=== PATIENT | male | born 1940 | race Hispanic/Latino ===

== ENCOUNTER 2017-12-29 05:47 | Inpatient (IN) | payer MEDICARE ==
[2017-12-29 05:57] VITALS: BMI 27.8
--- NOTE | 2017-12-29 06:21 | ED PDOC ---
Arrival/HPI - General Chief Complaint: GI Problem Time Seen by Provider: 12/29/17 06:01 Historian: Patient - History of Present Illness Narrative History of Present Illness (Text): 12/29/17 06:18 Swapnil Kumar is a 77 year old male, whose past medical history includes chronic hypertension, who presents to the Emergency department brought in by EMS accompanied by family complaining of hematemesis. As per patient's family, this morning patient appeared pale and diaphoretic, leaned over, and began spitting up blood. notes patient had dark stools yesterday and was seen by his gear machine operator general yesterday, who ordered labs and scheduled patient for an outpatient endoscopy later this week to rule out a bleeding ulcer. Patient reports some associated epigastric abdominal discomfort for the past few days. notes patient regularly takes Aspirin. Patient denies any loss of consciousness, headache, dizziness, chest pain, shortness of breath, diarrhea, or any other complaints. GI: Dr. Bautista Symptom Onset: Gradual Symptom Course: Unchanged Activities at Onset: Light Context: Home Past Medical History - Provider Review Nursing Documentation Reviewed: Yes - Cardiac Hx Cardiac Disorders: Yes Hx Hypertension: Yes - Pulmonary Hx Respiratory Disorders: No - Neurological Hx Neurological Disorder: No - Renal Hx Renal Disorder: No - Endocrine/Metabolic Hx Endocrine Disorders: No - Hematological/Oncological Hx Blood Disorders: No - Psychiatric Hx Substance Use: No - Anesthesia Hx Anesthesia: No Family/Social History - Physician Review Nursing Documentation Reviewed: Yes Family/Social History: Unknown Family HX Smoking Status: Never Smoked Hx Alcohol Use: No Hx Substance Use: No Allergies/Home Meds Allergies/Adverse Reactions: Allergies No Known Allergies Allergy (Unverified 12/29/17 06:28) Review of Systems - Physician Review All systems were reviewed & negative as marked: Yes - Review of Systems Constitutional: Normal. absent: Fevers Eyes: Normal ENT: Normal Respiratory: Normal. absent: SOB, Cough Cardiovascular: Normal. absent: Chest Pain Gastrointestinal: Abdominal Pain, Hematemesis (+spitting up blood), Other (+dark stools) Genitourinary Male: Normal. absent: Dysuria, Frequency, Hematuria, Urinary Output Changes Musculoskeletal: Normal. absent: Back Pain, Neck Pain Skin: Normal. absent: Rash Neurological: Normal. absent: Headache, Dizziness Endocrine: Normal Hemo/Lymphatic: Normal Psychiatric: Normal Physical Exam Vital Signs Reviewed: Yes Vital Signs Temp Pulse Resp BP Pulse Ox 12/29/17 06:00 97.7 F 60 18 133/51 L 98 Temperature: Afebrile Blood Pressure: Normal Pulse: Regular Respiratory Rate: Normal Appearance: Positive for: Well-Appearing, Non-Toxic, Comfortable Pain Distress: None Mental Status: Positive for: Alert and Oriented X 3 - Systems Exam Head: Present: Atraumatic, Normocephalic Pupils: Present: PERRL Extroacular Muscles: Present: EOMI Conjunctiva: Present: Normal Mouth: Present: Moist Mucous Membranes Neck: Present: Normal Range of Motion Respiratory/Chest: Present: Clear to Auscultation, Good Air Exchange. No: Respiratory Distress, Accessory Muscle Use Cardiovascular: Present: Regular Rate and Rhythm, Normal S1, S2. No: Murmurs Abdomen: Present: Tenderness (Mid epigastric tenderness). No: Distention, Peritoneal Signs, Guarding Back: Present: Normal Inspection Upper Extremity: Present: Normal Inspection. No: Cyanosis, Edema Lower Extremity: Present: Normal Inspection. No: Edema Neurological: Present: GCS=15, CN II-XII Intact, Speech Normal Skin: Present: Warm, Dry, Normal Color. No: Rashes Psychiatric: Present: Alert, Oriented x 3, Normal Insight, Normal Concentration Medical Decision Making ED Course and Treatment: 12/29/17 06:18 Impression: 77 year old male presented for dark stools, hematemesis, and abdominal discomfort. Plan: -- CT Abdomen and Pelvis with IV contrast -- EKG -- Chest X-ray -- Labs, blood type and screen, lipase -- IV fluids -- Pepcid -- Protonix -- Zofran -- Reassess and disposition Progress Notes: 12/29/17 07:[address] Chakraborty, pending labs, CT Abdomen and Pelvis, re- evaluation, and disposition. - EKG Interpretation Interpreted by ED Physician: Yes Type: 12 lead EKG - Scribe Statement The provider has reviewed the documentation as recorded by the Aaron Westfall Provider Scribe Attestation: All medical record entries made by the Scribe were at my direction and personally dictated by me. I have reviewed the chart and agree that the record accurately reflects my personal performance of the history, physical exam, medical decision making, and the department course for this patient. I have also personally directed, reviewed, and agree with the discharge instructions and disposition. Disposition/Present on Arrival - Present on Arrival Any Indicators Present on Arrival: No History of DVT/PE: No History of Uncontrolled Diabetes: No Urinary Catheter: No History of Decub. Ulcer: No History Surgical Site Infection Following: None - Disposition Have Diagnosis and Disposition been Completed?: No Diagnosis: Abdominal pain, Hematemesis Disposition Time: 07:00 Patient Problems: Current Active Problems Problem Status Onset Abdominal pain Acute Hematemesis Acute Condition: STABLE Referrals: Storm Garcia MD [Primary Care Provider] - Follow up with primary Forms: Evri (Indonesian)
[2017-12-29] MEDS ORDERED: Sodium Chloride 0.9% 1,000 ML IV STA (06:30)
--- NOTE | 2017-12-29 07:34 | ED PDOC ---
Physical Exam Vital Signs Reviewed: Yes Vital Signs Temp Pulse Resp BP Pulse Ox 12/29/17 06:00 97.7 F 60 18 133/51 L 98 Temperature: Afebrile Blood Pressure: Hypertensive Pulse: Regular Respiratory Rate: Normal Appearance: Positive for: Well-Appearing, Non-Toxic, Comfortable Pain Distress: None Mental Status: Positive for: Alert and Oriented X 3 - Systems Exam Head: Present: Atraumatic, Normocephalic Pupils: Present: PERRL Extroacular Muscles: Present: EOMI Conjunctiva: Present: Normal Mouth: Present: Moist Mucous Membranes Neck: Present: Normal Range of Motion Respiratory/Chest: Present: Clear to Auscultation, Good Air Exchange. No: Respiratory Distress, Accessory Muscle Use Cardiovascular: Present: Regular Rate and Rhythm, Normal S1, S2. No: Murmurs Abdomen: Present: Other (abdomen is soft). No: Tenderness, Distention Back: Present: Normal Inspection Upper Extremity: Present: Normal Inspection. No: Cyanosis, Edema Lower Extremity: Present: Normal Inspection. No: Edema Neurological: Present: GCS=15, CN II-XII Intact, Speech Normal Skin: Present: Warm, Dry, Normal Color. No: Rashes Psychiatric: Present: Alert, Oriented x 3, Normal Insight, Normal Concentration Medical Decision Making ED Course and Treatment: 12/29/17 07:31 Case endorsed to me by Dr. Phelps pending labs, CT, and admit for GI bleed, and disposition. EKG shows, NSR ST/T waves are pertinent. 12/29/17 08:48 CT Abdomen and Pelvis with contrast reviewed, shows: Dictator: Linus Antonio MD IMPRESSION: Gallstone. Severe spinal stenosis at L4-5. No acute intra-abdominal findings. 12/29/17 09:[address] Oakley, GI doctor, recommends possible ICU admission and eventually an endoscopy. No other recommendations. 12/29/17 10:07 Chest X-ray reviewed, shows: Dictator: Linus Antonio MD IMPRESSION: No active disease. Hgb 9.9 which is much lower than 13 from last admission in 2014. Type and Cross was ordered and Blood transfusion consent obtained. Case discussed with Dr. Wheat, ICU Rehabilitation Center Manager who came to the ED to evaluate patient. Patient blood pressure improved and stable after IVF. Patient is comfortable and asymptomatic. He recommends 1 unit PRBC at this time. Case discussed with Dr. Da Silva who will admit the patient to his service since Dr. Garcia is the PMD. - Critical Care Critical Care Minutes: 30 minutes - Lab Interpretations I have reviewed the lab results: Yes - RAD Interpretation Radiology Orders: 12/29/17 06:29 ABD & PELVIS IV CONTRAST ONLY [CT] Stat CHEST PORTABLE [RAD] Stat - EKG Interpretation Interpreted by ED Physician: Yes Type: 12 lead EKG - Medication Orders Current Medication Orders: Discontinued Medications Famotidine (Pepcid) 20 mg IVP STAT STA Stop: 12/29/17 06:31 Sodium Chloride (Sodium Chloride 0.9%) 1,000 mls @ 999 mls/hr IV .Q1H1M STA Stop: 12/29/17 07:30 Ondansetron HCl (Zofran Inj) 4 mg IVP ONCE ONE Stop: 12/29/17 06:31 Pantoprazole Sodium (Protonix Inj) 40 mg IVP ONCE STA Stop: 12/29/17 06:31 - Scribe Statement The provider has reviewed the documentation as recorded by the Aaron Dickerson Provider Scribe Attestation: All medical record entries made by the Scribe were at my direction and personally dictated by me. I have reviewed the chart and agree that the record accurately reflects my personal performance of the history, physical exam, medical decision making, and the department course for this patient. I have also personally directed, reviewed, and agree with the discharge instructions and disposition. Disposition/Present on Arrival - Present on Arrival Any Indicators Present on Arrival: No History of DVT/PE: No History of Uncontrolled Diabetes: No Urinary Catheter: No History of Decub. Ulcer: No History Surgical Site Infection Following: None - Disposition Have Diagnosis and Disposition been Completed?: Yes Diagnosis: Abdominal pain, Hematemesis Disposition Time: 09:58 Patient Plan: Admission, Telemetry Patient Problems: Current Active Problems Problem Status Onset Abdominal pain Acute Hematemesis Acute Condition: STABLE
[2017-12-29 07:50] LABS: HEMOGLOBIN 9.9 g/dL (14.0-18.0); MEAN CELL VOLUME 91.5 fl (80.0-105.0); MEAN CORPUSCULAR HEMOGLOBIN 30.2 pg (25.0-35.0); RBC 3.28 10^6/uL (3.5-6.1); RED CELL DISTRIBUTION WIDTH 13.2 % (11.5-14.5); WHITE BLOOD COUNT 12.6 10^3/uL (4.5-11.0)
[2017-12-29 07:59] LABS: ALB/GLOB RATIO 1.3 (1.1-1.8); ALBUMIN 3.6 g/dL (3.0-4.8); ALT/SGPT 31 U/L (7-56); AST/SGOT 25 U/L (17-59); BLOOD UREA NITROGEN 32 mg/dL (7-21); CALCIUM 8.9 mg/dL (8.4-10.5); GFR NON-AFRICAN AMERICAN > 60; INR 1.11; LIPASE 92 U/L (23-300); PARTIAL THROMBOPLASTIN TIME 22.5 Seconds (25.1-36.5); PROTHROMBIN TIME 12.8 SECONDS (9.4-12.5)
[2017-12-29] MEDS ORDERED: Iohexol 350 MG/100 ML VIAL ONE (08:11)
--- NOTE | 2017-12-29 08:46 | CT ---
Date of service: 12/29/2017 PROCEDURE: CT Abdomen and Pelvis with contrast HISTORY: abdominal pain COMPARISON: None. TECHNIQUE: Contrast dose: 100 cc of Omni 350 Radiation dose: Total exam DLP = 453.06 mGy-cm. This CT exam was performed using one or more of the following dose reduction techniques: Automated exposure control, adjustment of the mA and/or kV according to patient size, and/or use of iterative reconstruction technique. FINDINGS: LOWER THORAX: Unremarkable. LIVER: Unremarkable. No gross lesion or ductal dilatation. GALLBLADDER AND BILE DUCTS: 13 mm gallstone near the neck of the gallbladder. No inflammatory changes PANCREAS: Unremarkable. No gross lesion or ductal dilatation. SPLEEN: Unremarkable. ADRENALS: Unremarkable. No mass. KIDNEYS AND URETERS: Unremarkable. No hydronephrosis. No solid mass. VASCULATURE: Unremarkable. No aortic aneurysm. Aortic calcification BOWEL: Unremarkable. No obstruction. No gross mural thickening. APPENDIX: Normal appendix. PERITONEUM: Unremarkable. No free fluid. No free air. LYMPH NODES: Unremarkable. No enlarged lymph nodes. BLADDER: Unremarkable. REPRODUCTIVE: Unremarkable. BONES: L4-5 severe spinal stenosis due to large disc bulge and facet arthropathy. Grade 1 spondylolisthesis OTHER FINDINGS: None. IMPRESSION: Gallstone. Severe spinal stenosis at L4-5. No acute intra-abdominal findings
[2017-12-29] MEDS ORDERED: Pantoprazole 40mg/100mL NS 40 MG/100 ML BAG IVPB SCH (10:00)
--- NOTE | 2017-12-29 10:04 | RAD ---
Date of service: 12/29/2017 HISTORY: fever COMPARISON: 12/18/2016 FINDINGS: LUNGS: No active pulmonary disease. PLEURA: No significant pleural effusion identified, no pneumothorax apparent. CARDIOVASCULAR: No aortic atherosclerotic calcification present. Normal cardiac size. No pulmonary vascular congestion. OSSEOUS STRUCTURES: No significant abnormalities. VISUALIZED UPPER ABDOMEN: Normal. OTHER FINDINGS: None. IMPRESSION: No active disease.
[2017-12-29 10:46] LABS: IRON 85 ug/dL (45-180)
[2017-12-29] MEDS: Pantoprazole 40mg/100mL NS 40 MG/100 ML BAG IVPB SCH ×3 (10:50→21:18)
[2017-12-29] MEDS: Sodium Chloride 0.9% 1,000 ML IV SCH ×2 (10:51→18:15)
[2017-12-29 10:55] LABS: % IRON SATURATION 27 % (20-55); TOTAL IRON BINDING CAPACITY 318 ug/dL (261-462)
--- NOTE | 2017-12-29 11:48 | CP.PCM.HP ---
History of Present Illness - History of Present Illness History of Present Illness: Shahriar Barbosa, PGY1 Hospital H&P This is a 77 year old male with PMH of chronic constipation, HTN, spinal stenosis, BPH and varicose veins presenting to the hospital for large volume hematemesis that started at 5am this morning. Patient states he woke up and vomited coffee ground emesis continuously for 30 minutes. Per , patient vomited over half a bucket of fluid. He endorses associated symptoms of nausea, lethargy and diaphoresis. He has never had these symptoms before. He states he uses aspirin inconsistently and has not used in the last 4-5 days. Yesterday morning, patient had black tarry stool and subsequently was seen by his GI doctor who scheduled patient for EGD on . Patient had colonoscopy done 3 weeks for bloating/constipation which per revealed polyps, diverticulosis and internal hemorrhoids. Last BM was last night which was noted to be black and last meal was last evening and consisted of chicken soup. Per daughter, patient has lost 20 pounds over the last year and states patient has had decreased appetite over the last month. At time of examination, patient denies CP, SOB, headaches, fevers, chills, nausea, back pain, abdominal pain, urinary complaints, numbness, tingling and swelling. Patient also denies recent travel, sickness, trauma and lifestyle change though he did travel to [place] in September. 12 point ROS noted here, otherwise unremarkable. PMD: Garcia GI: [facility] PMH: chronic constipation, HTN, spinal stenosis, BPH and varicose veins SH: denies smoking, drinking and drugs Sx: rotator cuff tear in 2003, left FH: father had prostate cancer, DM All: NKDA Meds: Pharm: [facility] on [address] in [place] Present on Admission - Present on Admission Any Indicators Present on Admission: No Past Patient History - Past Social History Smoking Status: Never Smoked - CARDIAC Hx Cardiac Disorders: Yes Hx Hypertension: Yes - PULMONARY Hx Respiratory Disorders: No - NEUROLOGICAL Hx Neurological Disorder: No - RENAL Hx Chronic Kidney Disease: No - ENDOCRINE/METABOLIC Hx Endocrine Disorders: No - HEMATOLOGICAL/ONCOLOGICAL Hx Blood Disorders: No - PSYCHIATRIC Hx Substance Use: No - ANESTHESIA Hx Anesthesia: No Meds Allergies/Adverse Reactions: Allergies Allergy/AdvReac Type Severity Reaction Status Date / Time No Known Allergies Allergy Verified 12/29/17 11:39 Physical Exam - Constitutional Appears: No Acute Distress - Head Exam Head Exam: ATRAUMATIC, NORMAL INSPECTION - Eye Exam Eye Exam: EOMI Pupil Exam: PERRL - ENT Exam ENT Exam: Mucous Membranes Dry - Neck Exam Neck exam: Positive for: Normal Inspection - Respiratory Exam Respiratory Exam: Clear to Auscultation Bilateral. absent: Accessory Muscle Use, Wheezes, Respiratory Distress - Cardiovascular Exam Cardiovascular Exam: REGULAR RHYTHM, +S1, +S2 - GI/Abdominal Exam GI & Abdominal Exam: Normal Bowel Sounds, Tenderness. absent: Firm, Guarding - Extremities Exam Extremities exam: Positive for: normal inspection. Negative for: calf tenderness - Back Exam Back exam: absent: CVA tenderness (L), CVA tenderness (R) - Neurological Exam Neurological exam: Alert, Oriented x3 - Skin Skin Exam: Normal Color, Warm Results - Vital Signs Recent Vital Signs: Last Vital Signs Temp 97.7 F 12/29/17 06:00 Pulse 68 12/29/17 10:02 Resp 18 12/29/17 10:02 BP 122/73 12/29/17 10:02 Pulse Ox 98 12/29/17 10:02 - Labs Result Diagrams: 12/29/17 12:30 12/29/17 07:20 Labs: Laboratory Results - last 24 hr 12/29/17 12/29/17 12/29/17 07:20 07:20 07:20 WBC 12.6 H RBC 3.28 L Hgb 9.9 L Hct 30.0 L MCV 91.5 MCH 30.2 MCHC 33.0 RDW 13.2 Plt Count 190 MPV 11.0 PT 12.8 H INR 1.11 APTT 22.5 L Sodium 142 Potassium 4.5 Chloride 106 Carbon Dioxide 30 Anion Gap 10 BUN 32 H Creatinine 0.8 Est GFR ( Amer) > 60 Est GFR (Non-Af Amer) > 60 Random Glucose 117 H Calcium 8.9 Iron TIBC % Saturation Total Bilirubin 0.3 AST 25 ALT 31 Alkaline Phosphatase 57 Total Protein 6.4 Albumin 3.6 Globulin 2.9 Albumin/Globulin Ratio 1.3 Lipase 92 Blood Type Blood Type Confirm Antibody Screen Crossmatch BBK History Checked 12/29/17 12/29/17 12/29/17 07:30 10:00 10:05 WBC RBC Hgb Hct MCV MCH MCHC RDW Plt Count MPV PT INR APTT Sodium Potassium Chloride Carbon Dioxide Anion Gap BUN Creatinine Est GFR ( Amer) Est GFR (Non-Af Amer) Random Glucose Calcium Iron 85 TIBC 318 % Saturation 27 Total Bilirubin AST ALT Alkaline Phosphatase Total Protein Albumin Globulin Albumin/Globulin Ratio Lipase Blood Type O POSITIVE Blood Type Confirm O POSITIVE Antibody Screen Negative Crossmatch See Detail BBK History Checked No verified bt Assessment & Plan - Assessment and Plan (Free Text) Assessment: This is a 77 year old male with PMH of chronic constipation, HTN, spinal stenosis, BPH and varicose veins presenting to the hospital for large volume hematemesis that started at 5am this morning. Plan: Intractable vomiting -large volume coffee color hematemesis in AM -concern for PUD vs upper GI vascular etiology -initial BP in ED was 90/50. After 1L NS bolus given, BP was 118/69 -EGD by GI team -NPO for now -continue protonix drip -will monitor Hg; 9.4 from 9.9 in AM -s/p 1 unit PRBC -NS 100 -vital signs q4 -hold blood thinners for now -CTAP shows gallstone, severe spinal stenosis -CXR shows no active disease -GI on consult Hx of HTN -holding BP meds for now, will evaluate after EGD Leukocytosis -initial WBC of 12.6, currently resolved -afebrile, urine cx pending -will monitor PPX with protonic and SCD Patient seen and discussed with attending, Dr. Blake
--- NOTE | 2017-12-29 11:58 | CP.PCM.CON ---
History of Present Illness - History of Present Illness History of Present Illness: 77 M with chronic constipation, HTN, spinal stenosis, BPH presents with hematemesis. He has adark BM last night. This morning, he woke up and vomited coffee ground emesis. No hx of GiB in the past. Not on any anticoag. has not taken ASA in 3 days. He was scheduled for EGD tomorrow as an outpatient. In the ED his BP responded to fluid hydration and he was feeling much better. No bleeding episodes while he has been here. Labs notable for anemia, elevated BUN PMHX as above Home meds: to be obtained Fam hx: HTN Social hx: denies etoh abuse ROS as above Past Patient History - Past Social History Smoking Status: Never Smoked - CARDIAC Hx Cardiac Disorders: Yes Hx Hypertension: Yes - PULMONARY Hx Respiratory Disorders: No - NEUROLOGICAL Hx Neurological Disorder: No - RENAL Hx Chronic Kidney Disease: No - ENDOCRINE/METABOLIC Hx Endocrine Disorders: No - HEMATOLOGICAL/ONCOLOGICAL Hx Blood Disorders: No - PSYCHIATRIC Hx Substance Use: No - ANESTHESIA Hx Anesthesia: No Meds Allergies/Adverse Reactions: Allergies Allergy/AdvReac Type Severity Reaction Status Date / Time No Known Allergies Allergy Verified 12/29/17 11:39 - Medications Medications: Current Medications Sodium Chloride (Sodium Chloride 0.9%) 1,000 mls @ 100 mls/hr IV .Q10H HOLLIE Last Admin: 12/29/17 10:51 Dose: 100 mls/hr Pantoprazole Sodium (Protonix 40mg Ivpb) 40 mg in 100 mls @ 20 mls/hr IVPB .Q5H HOLLIE Last Admin: 12/29/17 10:50 Dose: 20 mls/hr Results - Vital Signs Recent Vital Signs: Last Vital Signs Temp 97.7 F 12/29/17 06:00 Pulse 68 12/29/17 10:02 Resp 18 12/29/17 10:02 BP 122/73 12/29/17 10:02 Pulse Ox 98 12/29/17 10:02 - Labs Result Diagrams: 12/29/17 07:20 12/29/17 07:20 Labs: Laboratory Results - last 24 hr 12/29/17 12/29/17 12/29/17 07:20 07:20 07:20 WBC 12.6 H RBC 3.28 L Hgb 9.9 L Hct 30.0 L MCV 91.5 MCH 30.2 MCHC 33.0 RDW 13.2 Plt Count 190 MPV 11.0 PT 12.8 H INR 1.11 APTT 22.5 L Sodium 142 Potassium 4.5 Chloride 106 Carbon Dioxide 30 Anion Gap 10 BUN 32 H Creatinine 0.8 Est GFR ( Amer) > 60 Est GFR (Non-Af Amer) > 60 Random Glucose 117 H Calcium 8.9 Iron TIBC % Saturation Total Bilirubin 0.3 AST 25 ALT 31 Alkaline Phosphatase 57 Total Protein 6.4 Albumin 3.6 Globulin 2.9 Albumin/Globulin Ratio 1.3 Lipase 92 Blood Type Blood Type Confirm Antibody Screen Crossmatch BBK History Checked 12/29/17 12/29/17 12/29/17 07:30 10:00 10:05 WBC RBC Hgb Hct MCV MCH MCHC RDW Plt Count MPV PT INR APTT Sodium Potassium Chloride Carbon Dioxide Anion Gap BUN Creatinine Est GFR ( Amer) Est GFR (Non-Af Amer) Random Glucose Calcium Iron 85 TIBC 318 % Saturation 27 Total Bilirubin AST ALT Alkaline Phosphatase Total Protein Albumin Globulin Albumin/Globulin Ratio Lipase Blood Type O POSITIVE Blood Type Confirm O POSITIVE Antibody Screen Negative Crossmatch See Detail BBK History Checked No verified bt Assessment & Plan - Assessment and Plan (Free Text) Assessment: 77M with likely upper gi bleed. Hemodynamically stable now with fluids, should receive blood 1 unit at least for now given his acute blood loss. I informed medical team and ER physician. For now he is stable for tele. he needs urgent EGD. If he vomits blood again or become unstable please re-call ICU. For now transfuse 1 unit CBC q 4 EGD [place] cont IVF fluid ensure 2 large bore IVs hold any anticoag / antiplat IV ppi drip ADELA Wheat MD MICU Attending
--- NOTE | 2017-12-29 12:37 | CARD ---
APPROVED REPORT Date of service: 12/29/2017 EKG Measurement Heart [id number] <Conclusion> Normal sinus rhythm Nonspecific T wave abnormality Abnormal ECG
[2017-12-29 13:04] LABS: HEMOGLOBIN 9.4 g/dL (14.0-18.0); MEAN CELL VOLUME 90.9 fl (80.0-105.0); MEAN CORPUSCULAR HEMOGLOBIN 29.6 pg (25.0-35.0); MEAN CORPUSCULAR HGB CONC 32.5 g/dl (31.0-37.0); MEAN PLATELET VOLUME 10.9 fl (7.0-11.0); RBC 3.18 10^6/uL (3.5-6.1); RED CELL DISTRIBUTION WIDTH 13.1 % (11.5-14.5)
[2017-12-29 13:12] LABS: URINE BILIRUBIN NEGATIVE (NEGATIVE); URINE BLOOD NEGATIVE (NEGATIVE); URINE GLUCOSE (UA) NEGATIVE (NEGATIVE); URINE LEUKOCYTE ESTERASE NEGATIVE Leu/uL (NEGATIVE); URINE PROTEIN NEGATIVE mg/dL (<30 mg/dL); URINE UROBILINOGEN 0.2 E.U./dL (<1 E.U./dL)
[2017-12-29 13:16] LABS: URINE APPEARANCE CLEAR (CLEAR); URINE COLOR STRAW (YELLOW)
--- NOTE | 2017-12-29 14:10 | CP.PCM.CON ---
<Dorothy Oakley - Last Filed: 12/29/17 13:52> History of Present Illness - History of Present Illness History of Present Illness: Gastroenterology Fellow/PGY6 Consult Note 77 year old male with PMH of HTN presenting with vomiting blood and dark stools. Patient notes two black stools yesterday with associated abdominal pain. Patient notes having a large coffee-ground emesis leading to ER presentation. Associated acid reflux, heartburn, weakness, and diaphoresis. Admits to use of naproxen t wice daily for the last two weeks for left leg pain due to varicose veins. Notes constipation with hard stools every 1-2 days and associated 10-15 pound unintentional weight loss over the last month. Recent outpatient evaluation with established gastroenterology yesterday with plan for outpatient EGD later this week. Recent colonoscopy three weeks ago endorsed by daughter to have polyps, diverticulosis, and internal hemorrhoids. Family History- denies stomach cancer, colon cancer Social History- denies tobacco, alcohol, or illicit drug use Surgical History- none Review of Systems - Review of Systems Review of Systems: 12-point review of systems negative except for as above Past Patient History - Past Social History Smoking Status: Never Smoked - CARDIAC Hx Cardiac Disorders: Yes Hx Hypertension: Yes - PULMONARY Hx Respiratory Disorders: No - NEUROLOGICAL Hx Neurological Disorder: No - RENAL Hx Chronic Kidney Disease: No - ENDOCRINE/METABOLIC Hx Endocrine Disorders: No - HEMATOLOGICAL/ONCOLOGICAL Hx Blood Disorders: No - PSYCHIATRIC Hx Substance Use: No - ANESTHESIA Hx Anesthesia: No Meds Allergies/Adverse Reactions: Allergies Allergy/AdvReac Type Severity Reaction Status Date / Time No Known Allergies Allergy Verified 12/29/17 11:39 - Medications Medications: Current Medications Sodium Chloride (Sodium Chloride 0.9%) 1,000 mls @ 100 mls/hr IV .Q10H [facility] Last Admin: 12/29/17 10:51 Dose: 100 mls/hr Pantoprazole Sodium (Protonix 40mg Ivpb) 40 mg in 100 mls @ 20 mls/hr IVPB .Q5H [facility] Last Admin: 12/29/17 10:50 Dose: 20 mls/hr Physical Exam - Constitutional Appears: Non-toxic, No Acute Distress - Head Exam Head Exam: ATRAUMATIC, NORMOCEPHALIC - Eye Exam Eye Exam: EOMI, PERRL. absent: Scleral icterus Pupil Exam: PERRL. absent: Miosis, Mydriatic - ENT Exam ENT Exam: Mucous Membranes Moist, Normal Oropharynx - Neck Exam Neck exam: Positive for: Full Rom, Normal Inspection - Respiratory Exam Respiratory Exam: Clear to Auscultation Bilateral. absent: Rales, Rhonchi, Wheezes - Cardiovascular Exam Cardiovascular Exam: RRR, +S1, +S2. absent: Gallop, Rubs - GI/Abdominal Exam GI & Abdominal Exam: Normal Bowel Sounds, Soft, Tenderness. absent: Distended, Firm, Guarding, Organomegaly, Rebound, Rigid Additional comments: mild mid-epigastric discomfort to palpation - Rectal Exam Rectal Exam: Black Stool Additional comments: no bright red blood, good tone - Extremities Exam Extremities exam: Positive for: normal inspection. Negative for: pedal edema - Neurological Exam Neurological exam: Alert - Psychiatric Exam Psychiatric exam: Normal Affect, Normal Mood - Skin Skin Exam: Dry, Intact, Normal Color, Warm Results - Vital Signs Recent Vital Signs: Last Vital Signs Temp 98 F 12/29/17 13:40 Pulse 65 12/29/17 13:40 Resp 18 12/29/17 13:40 BP 115/65 12/29/17 13:40 Pulse Ox 98 12/29/17 12:00 - Labs Result Diagrams: 12/29/17 12:30 12/29/17 07:20 Labs: Laboratory Results - last 24 hr 12/29/17 12/29/17 12/29/17 07:20 07:20 07:20 WBC 12.6 H RBC 3.28 L Hgb 9.9 L Hct 30.0 L MCV 91.5 MCH 30.2 MCHC 33.0 RDW 13.2 Plt Count 190 MPV 11.0 PT 12.8 H INR 1.11 APTT 22.5 L Sodium 142 Potassium 4.5 Chloride 106 Carbon Dioxide 30 Anion Gap 10 BUN 32 H Creatinine 0.8 Est GFR ( Amer) > 60 Est GFR (Non-Af Amer) > 60 Random Glucose 117 H Calcium 8.9 Iron TIBC % Saturation Total Bilirubin 0.3 AST 25 ALT 31 Alkaline Phosphatase 57 Total Protein 6.4 Albumin 3.6 Globulin 2.9 Albumin/Globulin Ratio 1.3 Lipase 92 Urine Color Urine Appearance Urine pH Ur Specific Wolf Urine Protein Urine Glucose (UA) Urine Ketones Urine Blood Urine Nitrate Urine Bilirubin Urine Urobilinogen Ur Leukocyte Esterase Blood Type Blood Type Confirm Antibody Screen Crossmatch BBK History Checked 12/29/17 12/29/17 12/29/17 07:30 10:00 10:05 WBC RBC Hgb Hct MCV MCH MCHC RDW Plt Count MPV PT INR APTT Sodium Potassium Chloride Carbon Dioxide Anion Gap BUN Creatinine Est GFR ( Amer) Est GFR (Non-Af Amer) Random Glucose Calcium Iron 85 TIBC 318 % Saturation 27 Total Bilirubin AST ALT Alkaline Phosphatase Total Protein Albumin Globulin Albumin/Globulin Ratio Lipase Urine Color Urine Appearance Urine pH Ur Specific Wolf Urine Protein Urine Glucose (UA) Urine Ketones Urine Blood Urine Nitrate Urine Bilirubin Urine Urobilinogen Ur Leukocyte Esterase Blood Type O POSITIVE Blood Type Confirm O POSITIVE Antibody Screen Negative Crossmatch See Detail BBK History Checked No verified bt 12/29/17 12/29/17 12:30 13:00 WBC 9.0 D RBC 3.18 L Hgb 9.4 L Hct 28.9 L MCV 90.9 MCH 29.6 MCHC 32.5 RDW 13.1 Plt Count 171 MPV 10.9 PT INR APTT Sodium Potassium Chloride Carbon Dioxide Anion Gap BUN Creatinine Est GFR ( Amer) Est GFR (Non-Af Amer) Random Glucose Calcium Iron TIBC % Saturation Total Bilirubin AST ALT Alkaline Phosphatase Total Protein Albumin Globulin Albumin/Globulin Ratio Lipase Urine Color Straw Urine Appearance Clear Urine pH 6.0 Ur Specific Wolf <= 1.005 Urine Protein Negative Urine Glucose (UA) Negative Urine Ketones Negative Urine Blood Negative Urine Nitrate Negative Urine Bilirubin Negative Urine Urobilinogen 0.2 Ur Leukocyte Esterase Negative Blood Type Blood Type Confirm Antibody Screen Crossmatch BBK History Checked Assessment & Plan - Assessment and Plan (Free Text) Assessment: 77 year old male with PMH of HTN presenting with vomiting blood and dark stools. Patient notes two black stools yesterday with associated abdominal pain. Patient notes having a large coffee-ground emesis leading to ER presentation. Active treatment of symptomatic anemia likely 2/[address] A/P IV contrast showed no acute intra-abdominal pathology. Recent colonoscopy three weeks ago endorsed by daughter to have polyps, diverticulosis, and internal hemorrhoids. Plan: -DDx: PUD, vascular malformation -NPO -EGD scheduled for today -received PPI 80mg bolus -continue PPI drip -will plan to receive 1 unit pRBC -serial H/H Q4H -received IVF bolus -continue maintenance IVFs -avoid NSAIDs -further recommendations after endoscopy <Adin,Kovil V - Last Filed: 12/30/17 23:24> Meds - Medications Medications: Current Medications Pantoprazole Sodium (Protonix Ec Tab) 40 mg PO 0600,1600 [facility] Results - Vital Signs Recent Vital Signs: Last Vital Signs Temp 98.1 F 12/30/17 17:44 Pulse 65 12/30/17 17:44 Resp 18 12/30/17 17:44 BP 120/69 12/30/17 17:44 Pulse Ox 97 12/30/17 05:57 - Labs Result Diagrams: 12/30/17 06:00 12/30/17 06:00 Labs: Laboratory Results - last 24 hr 12/30/17 12/30/17 12/30/17 02:15 06:00 06:00 WBC 8.5 8.8 RBC 3.29 L 3.32 L Hgb 9.9 L 9.9 L Hct 29.4 L 29.9 L MCV 89.4 90.1 MCH 30.1 29.8 MCHC 33.7 33.1 RDW 13.6 13.6 Plt Count 161 161 MPV 10.7 11.1 H Gran % 62.5 Lymph % (Auto) 26.8 Beaver % (Auto) 7.0 H Eos % (Auto) 3.2 Baso % (Auto) 0.5 Gran # 5.50 Lymph # (Auto) 2.4 Beaver # (Auto) 0.6 Eos # (Auto) 0.3 Baso # (Auto) 0.04 Sodium 142 Potassium 4.4 Chloride 110 H Carbon Dioxide 29 Anion Gap 7 L BUN 19 Creatinine 0.9 Est GFR ( Amer) > 60 Est GFR (Non-Af Amer) > 60 Random Glucose 90 Calcium 8.4 Phosphorus 2.9 Magnesium 1.8 Total Bilirubin 0.5 AST 21 ALT 31 Alkaline Phosphatase 53 Total Protein 5.9 Albumin 3.1 Globulin 2.7 Albumin/Globulin Ratio 1.1 Attending/Attestation - Attestation I have personally seen and examined this patient.: Yes I have fully participated in the care of the patient.: Yes I have reviewed all pertinent clinical information: Yes Notes (Text): p 12/30/17 23:24
[2017-12-29] MEDS ORDERED: Influenza Vaccine 60 mcg/0.5 mL SYR (4YR UP) IM ONE (14:51)
[2017-12-29] MEDS ORDERED: Pneumococcal 23-Valent Vaccine IM ONE (14:51)
[2017-12-29] MEDS ORDERED: Propofol 10 mg/ml Inj (20 ML) ONE (15:43)
[2017-12-29] MEDS ORDERED: Lidocaine 1% Inj (20ml) ONE (15:43)
[2017-12-29] MEDS ORDERED: Sodium Chloride 0.9% 1,000 ML IV SCH (15:45)
[2017-12-29 16:41] VITALS: O2SAT 97
[2017-12-29 21:38] LABS: MEAN CELL VOLUME 89.2 fl (80.0-105.0); MEAN CORPUSCULAR HEMOGLOBIN 30.1 pg (25.0-35.0); MEAN CORPUSCULAR HGB CONC 33.8 g/dl (31.0-37.0); RBC 3.32 10^6/uL (3.5-6.1); RED CELL DISTRIBUTION WIDTH 13.5 % (11.5-14.5)
[2017-12-30 02:50] LABS: HEMOGLOBIN 9.9 g/dL (14.0-18.0); MEAN CELL VOLUME 89.4 fl (80.0-105.0); MEAN CORPUSCULAR HEMOGLOBIN 30.1 pg (25.0-35.0); MEAN CORPUSCULAR HGB CONC 33.7 g/dl (31.0-37.0); MEAN PLATELET VOLUME 10.7 fl (7.0-11.0); RBC 3.29 10^6/uL (3.5-6.1); RED CELL DISTRIBUTION WIDTH 13.6 % (11.5-14.5); WHITE BLOOD COUNT 8.5 10^3/uL (4.5-11.0)
[2017-12-30 06:52] LABS: ALB/GLOB RATIO 1.1 (1.1-1.8); ALBUMIN 3.1 g/dL (3.0-4.8); ALT/SGPT 31 U/L (7-56); AST/SGOT 21 U/L (17-59); BLOOD UREA NITROGEN 19 mg/dL (7-21); CALCIUM 8.4 mg/dL (8.4-10.5); GFR NON-AFRICAN AMERICAN > 60
[2017-12-30 06:57] LABS: BASO # 0.04 K/mm3 (0.0-2.0); BASO % 0.5 % (0.0-3.0); EOS # 0.3 (0.0-0.7); EOS % 3.2 % (1.5-5.0); GRAN # 5.5 (1.4-6.5); GRAN % 62.5 % (50.0-68.0); HEMOGLOBIN 9.9 g/dL (14.0-18.0); LYMPH # 2.4 (1.2-3.4); LYMPH % 26.8 % (22.0-35.0); MEAN CELL VOLUME 90.1 fl (80.0-105.0); MEAN CORPUSCULAR HEMOGLOBIN 29.8 pg (25.0-35.0); MEAN CORPUSCULAR HGB CONC 33.1 g/dl (31.0-37.0); MEAN PLATELET VOLUME 11.1 fl (7.0-11.0); MONO # 0.6 (0.1-0.6); RBC 3.32 10^6/uL (3.5-6.1); RED CELL DISTRIBUTION WIDTH 13.6 % (11.5-14.5); WHITE BLOOD COUNT 8.8 10^3/uL (4.5-11.0)
[2017-12-30] MEDS: Pantoprazole 40mg/100mL NS 40 MG/100 ML BAG IVPB SCH ×2 (09:20→09:21)
[2017-12-30] MEDS: Sodium Chloride 0.9% 1,000 ML IV SCH (09:21)
--- NOTE | 2017-12-30 10:47 | CP.PCM.PN ---
<Dorothy Oakley - Last Filed: 12/30/17 10:42> Subjective - Date & Time of Evaluation Date of Evaluation: 12/30/17 Time of Evaluation: 10:45 - Subjective Subjective: Gastroenterology Fellow/PGY6 Progress Note Patient feels well. Notes black bowel movement this morning of residual blood with no bowel movement yesterday. Tolerating clear liquid diet. Admits to mild lower abdominal discomfort. A 12-point review of systems negative except for as above. Objective - Vital Signs/Intake and Output Vital Signs (last 24 hours): Temp Pulse Resp BP Pulse Ox 98.6 F 67 20 117/71 97 12/30/17 05:57 12/30/17 05:57 12/30/17 05:57 12/30/17 05:57 12/30/17 05:57 Intake and Output: 12/30/17 12/30/17 06:59 18:59 Intake Total 1820 Output Total 1800 Balance 20 - Medications Medications: Current Medications Sodium Chloride (Sodium Chloride 0.9%) 1,000 mls @ 100 mls/hr IV .Q10H [facility] Last Admin: 12/30/17 09:21 Dose: Not Given Pantoprazole Sodium (Protonix 40mg Ivpb) 40 mg in 100 mls @ 20 mls/hr IVPB .Q5H [facility] Last Admin: 12/30/17 09:21 Dose: Not Given - Labs Labs: 12/30/17 06:00 12/30/17 06:00 PT 12.8 SECONDS (9.4-12.5) H 12/29/17 07:20 INR 1.11 12/29/17 07:20 APTT 22.5 Seconds (25.1-36.5) L 12/29/17 07:20 - Constitutional Appears: Non-toxic, No Acute Distress - Head Exam Head Exam: ATRAUMATIC, NORMOCEPHALIC - Eye Exam Eye Exam: EOMI, PERRL Pupil Exam: PERRL. absent: Miosis, Mydriatic - ENT Exam ENT Exam: Mucous Membranes Moist, Normal Oropharynx - Neck Exam Neck Exam: Full ROM, Normal Inspection - Respiratory Exam Respiratory Exam: Clear to Ausculation Bilateral. absent: Rales, Rhonchi, Wheezes - Cardiovascular Exam Cardiovascular Exam: RRR, +S1, +S2. absent: Rubs - GI/Abdominal Exam GI & Abdominal Exam: Soft, Normal Bowel Sounds. absent: Distended, Firm, G uarding, Rigid, Tenderness, Organomegaly, Rebound - Extremities Exam Extremities Exam: Normal Inspection. absent: Pedal Edema - Neurological Exam Neurological Exam: Alert, Awake - Psychiatric Exam Psychiatric exam: Normal Affect, Normal Mood - Skin Skin Exam: Dry, Intact, Normal Color, Warm Assessment and Plan - Assessment and Plan (Free Text) Assessment: 77 year old male with PMH of HTN presenting with vomiting blood and dark stools. Patient notes two black stools yesterday with associated abdominal pain. Patient notes having a large coffee-ground emesis leading to ER presentation. Active treatment of symptomatic anemia 2/[address] A/P IV contrast showed no acute intra-abdominal pathology. Recent colonoscopy three weeks ago endorsed by daughter to have polyps, diverticulosis, and internal hemorrhoids. Plan: -POD1 (12/29) EGD showed duodenal ulcer Donell classification IIc and two superfical antral ulcers Donell classification III -complete Protonix drip for 24 hours, start Protonix 40mg PO ACBD this evening -continue clear liquid diet -can advance to soft diet for lunch -counselled on low fiber diet for next 48 hours -H/H stable -avoid NSAIDs -if no further signs of bleeding and tolerate diet, okay to discharge and follow up with established certified medical technician within one week <Chula Oakley V - Last Filed: 12/30/17 23:23> Objective - Vital Signs/Intake and Output Vital Signs (last 24 hours): Temp Pulse Resp BP Pulse Ox 98.1 F 65 18 120/69 97 12/30/17 17:44 12/30/17 17:44 12/30/17 17:44 12/30/17 17:44 12/30/17 05:57 Intake and Output: 12/30/17 12/31/17 18:59 06:59 Intake Total 2170 1320 Output Total 275 Balance 2170 1045 - Medications Medications: Current Medications Pantoprazole Sodium (Protonix Ec Tab) 40 mg PO 0600,1600 [facility] - Labs Labs: 12/30/17 06:00 12/30/17 06:00 PT 12.8 SECONDS (9.4-12.5) H 12/29/17 07:20 INR 1.11 12/29/17 07:20 APTT 22.5 Seconds (25.1-36.5) L 12/29/17 07:20 Attending/Attestation - Attestation I have personally seen and examined this patient.: Yes I have fully participated in the care of the patient.: Yes I have reviewed all pertinent clinical information, including history, physical exam and plan: Yes
--- NOTE | 2017-12-30 16:27 | CP.PCM.PN ---
<Shahriar Barbosa - Last Filed: 12/30/17 16:16> Subjective - Date & Time of Evaluation Date of Evaluation: 12/30/17 Time of Evaluation: 10:20 - Subjective Subjective: Shahriar Barbosa PGY1 Medicine Progress Note Patient seen and examined at bedside this morning. No acute events overnight. Patient resting comfortably and offers no complaints today. Tolerating CLD well. States last BM in the morning was black and tarry. Denies fevers, chills, headaches, nausea, vomiting, urinary complaints, numbness, tingling, swelling and abdominal pain. Objective - Vital Signs/Intake and Output Vital Signs (last 24 hours): Temp Pulse Resp BP Pulse Ox 98.1 F 64 18 111/69 97 12/30/17 11:54 12/30/17 11:54 12/30/17 11:54 12/30/17 11:54 12/30/17 05:57 Intake and Output: 12/30/17 12/30/17 06:59 18:59 Intake Total 1820 Output Total 1800 Balance 20 - Medications Medications: Current Medications Sodium Chloride (Sodium Chloride 0.9%) 1,000 mls @ 100 mls/hr IV .Q10H [facility] Last Admin: 12/30/17 09:21 Dose: Not Given Pantoprazole Sodium (Protonix 40mg Ivpb) 40 mg in 100 mls @ 20 mls/hr IVPB .Q5H [facility] Last Admin: 12/30/17 09:21 Dose: Not Given - Labs Labs: 12/30/17 06:00 12/30/17 06:00 PT 12.8 SECONDS (9.4-12.5) H 12/29/17 07:20 INR 1.11 12/29/17 07:20 APTT 22.5 Seconds (25.1-36.5) L 12/29/17 07:20 - Additional Findings Additional findings: - Constitutional Appears: No Acute Distress - Head Exam Head Exam: ATRAUMATIC, NORMAL INSPECTION - Eye Exam Eye Exam: EOMI Pupil Exam: PERRL - Neck Exam Neck exam: Positive for: Normal Inspection - Respiratory Exam Respiratory Exam: Clear to Auscultation Bilateral. absent: Accessory Muscle Use, Wheezes, rales Respiratory Distress - Cardiovascular Exam Cardiovascular Exam: REGULAR RHYTHM, +S1, +S2 - GI/Abdominal Exam GI & Abdominal Exam: Normal Bowel Sounds, Tenderness. absent: Firm, Guarding, murhpy sign - Extremities Exam Extremities exam: Positive for: normal inspection. Negative for: calf tenderness - Back Exam Back exam: absent: CVA tenderness (L), CVA tenderness (R) - Neurological Exam Neurological exam: Alert, Oriented x3 - Skin Skin Exam: Normal Color, Warm Assessment and Plan - Assessment and Plan (Free Text) Assessment: This is a 77 year old male with PMH of chronic constipation, HTN, spinal stenosis, BPH and varicose veins presenting to the hospital for large volume hematemesis that started at 5am on morning of admission. Plan: PUD vs vascular malformation -large volume coffee color hematemesis on admission -EGD 12/29 showed 1 duodenal ulcer and two superfical antral ulcers that are non bleeding -will continue with protonix drip for 24 hours from EGD, d/c today evening -continue CLD, advance to soft diet for lunch -aviod NSAIDS -PT/OT eval -Hg is stable -s/p 1 unit PRBC on 12/29 -NS 100 -vital signs q4 -hold blood thinners for now -CTAP shows gallstone, severe spinal stenosis -CXR shows no active disease -GI on consult Hx of HTN -holding BP meds for now, will resume upon discharge Leukocytosis -initial WBC of 12.6, currently 8.8, WNL -afebrile, urine cx pending -will continue to monitor PPX with protonix and SCD Patient seen and discussed with attending, Dr. Jammie Butt <Jammie Butt R - Last Filed: 12/30/17 22:07> Objective - Vital Signs/Intake and Output Vital Signs (last 24 hours): Temp Pulse Resp BP Pulse Ox 98.1 F 65 18 120/69 97 12/30/17 17:44 12/30/17 17:44 12/30/17 17:44 12/30/17 17:44 12/30/17 05:57 Intake and Output: 12/30/17 12/31/17 18:59 06:59 Intake Total 2170 1320 Output Total 275 Balance 2170 1045 - Medications Medications: Current Medications Pantoprazole Sodium (Protonix Inj) 40 mg IVP BID [facility] Last Admin: 12/30/17 17:13 Dose: 40 mg - Labs Labs: 12/30/17 06:00 12/30/17 06:00 PT 12.8 SECONDS (9.4-12.5) H 12/29/17 07:20 INR 1.11 12/29/17 07:20 APTT 22.5 Seconds (25.1-36.5) L 12/29/17 07:20 Attending/Attestation - Attestation I have personally seen and examined this patient.: Yes I have fully participated in the care of the patient.: Yes I have reviewed all pertinent clinical information, including history, physical exam and plan: Yes Notes (Text): Patient seen and examined by me with resident at 9:55AM on 12/30/17. Case including HPI, physical exam, and assessment and plan discussed with resident. Agree with above with following additions/corrections. Patient is a 77-year-old male past medical history significant for chronic const ipation, hypertension, spinal stenosis, BPH, and varicose veins that presented to the emergency room with large volume of hematemesis. Patient states that he is feeling much better. However, he still has some lower abdominal discomfort. He states he is not having any abdominal pain. Patient is tolerating diet. No hematemesis. No nausea or vomiting. No headaches or dizziness. No fevers or chills. No chest pain or shortness of breath. Patient states he did have a bowel movement today with "black" stool. No dysuria. Physical exam: General: Awake and alert lying in bed in no acute distress. HEENT: Normocephalic, atraumatic. Extraocular muscles intact, pupils equal and reactive, no scleral icterus. Oropharynx is pink and moist. Neck is supple. Cardiovascular: Normal rhythm. Normal S1 and S2. No murmurs, rubs, or gallops appreciated Pulmonary: Normal respiratory effort. No rhonchi, rales, or wheezing appreciated. Gastrointestinal: Soft, nondistended. Positive mild tenderness lower abdomen. Positive bowel sounds all 4 quadrants. No guarding. Musculoskeletal: Moves all extremities. No calf tenderness. No edema appreciated Central nervous system: AAOx3 Dermatologic: Skin warm and dry. Assessment and plan: Patient is a 77-year-old male past medical history significant for chronic constipation, hypertension, spinal stenosis, BPH, and varicose veins that presented to the emergency room with large volume of hematemesis. 1. Hematemesis. Resolved. CT abdomen and pelvis per radiologist showed gallstone, severe spinal stenosis at L4-L5, no acute intra-abdominal findings. GI following, recommendations appreciated. Patient is status post EGD on 12/29/2017. Per air motor repairer, EGD showed normal esophagus, erythematous mucosa in the stomach which was biopsied, nonbleeding gastric ulcers with a clean ulcer base, one nonbleeding duodenal ulcer with a flat pigmented spot. Per GI, discontinue NSAIDs indefinitely, will need repeat upper endoscopy in 2 months. Patient will need to follow up biopsy results. Advance diet as tolerated. Continue with Protonix BID. 2. Anemia secondary to acute blood loss. Status post 1 unit packed red blood 12/29/2017. H&H stable. Continue to monitor. 3. Essential hypertension. Blood pressure medications held for now secondary to GI bleed. Patient to resume home Norvasc and Benicar upon discharge. 4. BPH. Home Rapaflo held for now as patient was nothing by mouth. Patient to restart upon discharge. 5. Chronic spinal stenosis. Patient to stop home naproxen. Patient to avoid using all NSAIDs. PT evaluation pending. 6. GI prophylaxis. Protonix 7. Patient is a full code Case was discussed in detail with the patient regarding current diagnosis and treatment plan. All questions answered.
[2017-12-31] MEDS: Pantoprazole 40 mg EC Tab PO SCH ×2 (06:00→16:37)
[2017-12-31 07:15] LABS: BASO # 0.04 K/mm3 (0.0-2.0); BASO % 0.5 % (0.0-3.0); EOS # 0.4 (0.0-0.7); EOS % 4.9 % (1.5-5.0); GRAN # 4.27 (1.4-6.5); GRAN % 56.9 % (50.0-68.0); HEMOGLOBIN 9.9 g/dL (14.0-18.0); LYMPH # 2.3 (1.2-3.4); LYMPH % 30.2 % (22.0-35.0); MEAN CELL VOLUME 90.1 fl (80.0-105.0); MEAN CORPUSCULAR HEMOGLOBIN 29.6 pg (25.0-35.0); MEAN CORPUSCULAR HGB CONC 32.9 g/dl (31.0-37.0); MEAN PLATELET VOLUME 10.4 fl (7.0-11.0); MONO # 0.6 (0.1-0.6); MONO % 7.5 % (1.0-6.0); RBC 3.34 10^6/uL (3.5-6.1); RED CELL DISTRIBUTION WIDTH 13.6 % (11.5-14.5); WHITE BLOOD COUNT 7.5 10^3/uL (4.5-11.0)
[2017-12-31 08:17] LABS: ALB/GLOB RATIO 1.2 (1.1-1.8); ALBUMIN 3.3 g/dL (3.0-4.8); ALT/SGPT 23 U/L (7-56); AST/SGOT 21 U/L (17-59); BLOOD UREA NITROGEN 15 mg/dL (7-21); CALCIUM 8.7 mg/dL (8.4-10.5); GFR NON-AFRICAN AMERICAN > 60
--- NOTE | 2017-12-31 11:40 | CP.PCM.PN ---
<Dorothy Oakley - Last Filed: 12/31/17 11:37> Subjective - Date & Time of Evaluation Date of Evaluation: 12/31/17 Time of Evaluation: 11:37 - Subjective Subjective: Gastroenterology Fellow/PGY6 Progress Note Patient feels well. No bowel movement overnight. Tolerating regular diet. A 12- point review of systems negative except for as above. Objective - Vital Signs/Intake and Output Vital Signs (last 24 hours): Temp Pulse Resp BP Pulse Ox 98.4 F 72 18 108/65 97 12/31/17 00:01 12/31/17 02:00 12/31/17 00:01 12/31/17 00:01 12/30/17 05:57 Intake and Output: 12/31/17 12/31/17 06:59 18:59 Intake Total 1440 Output Total 275 Balance 1165 - Medications Medications: Current Medications Pantoprazole Sodium (Protonix Ec Tab) 40 mg PO 0600,1600 [facility] Last Admin: 12/31/17 06:00 Dose: 40 mg - Labs Labs: 12/31/17 07:00 12/31/17 07:00 PT 12.8 SECONDS (9.4-12.5) H 12/29/17 07:20 INR 1.11 12/29/17 07:20 APTT 22.5 Seconds (25.1-36.5) L 12/29/17 07:20 - Constitutional Appears: Non-toxic, No Acute Distress - Head Exam Head Exam: ATRAUMATIC, NORMOCEPHALIC - Eye Exam Eye Exam: EOMI, PERRL. absent: Scleral icterus Pupil Exam: PERRL. absent: Miosis, Mydriatic - ENT Exam ENT Exam: Mucous Membranes Moist, Normal Oropharynx - Neck Exam Neck Exam: Full ROM, Normal Inspection - Respiratory Exam Respiratory Exam: Clear to Ausculation Bilateral. absent: Rales, Rhonchi, Wheezes - Cardiovascular Exam Cardiovascular Exam: RRR, +S1, +S2. absent: Gallop, Rubs - GI/Abdominal Exam GI & Abdominal Exam: Soft, Normal Bowel Sounds. absent: Distended, Firm, Guarding, Rigid, Tenderness, Organomegaly, Rebound - Extremities Exam Extremities Exam: Normal Inspection. absent: Pedal Edema - Neurological Exam Neurological Exam: Alert, Awake - Psychiatric Exam Psychiatric exam: Normal Affect, Normal Mood - Skin Skin Exam: Dry, Intact, Normal Color, Warm Assessment and Plan - Assessment and Plan (Free Text) Assessment: 77 year old male with PMH of HTN presenting with coffee-ground emesis and melena. Active treatment of symptomatic anemia 2/2 upper GI bleed POD2 (12/29) EGD showed duodenal ulcer Donell classification IIc and two superfical antral ulcers Donell classification III. Recent colonoscopy three weeks ago endorsed by daughter to have polyps, diverticulosis, and internal hemorrhoids. Plan: -H/H stable -continue Protonix 40mg PO ACBD on discharge -continue regular diet,low fiber -avoid NSAIDs -counselled patient to follow up with established elastic assembler within one week of discharge <Chula Oakley V - Last Filed: 12/31/17 23:49> Objective - Vital Signs/Intake and Output Vital Signs (last 24 hours): Temp Pulse Resp BP Pulse Ox 98 F 78 20 121/74 97 12/31/17 18:00 12/31/17 18:00 12/31/17 18:00 12/31/17 18:00 12/31/17 09:00 Intake and Output: 12/31/17 01/01/18 18:59 06:59 Intake Total 1260 Output Total 1400 Balance -140 - Labs Labs: 12/31/17 15:40 12/31/17 15:40 PT 12.8 SECONDS (9.4-12.5) H 12/29/17 07:20 INR 1.11 12/29/17 07:20 APTT 22.5 Seconds (25.1-36.5) L 12/29/17 07:20 Attending/Attestation - Attestation I have personally seen and examined this patient.: Yes I have fully participated in the care of the patient.: Yes I have reviewed all pertinent clinical information, including history, physical exam and plan: Yes Notes (Text): This is an addendum to GI progress report dictated by the GI Fellow.The patient was seen and examined earlier. Medical records, lab studies, imagings were reviewed. Last 24 hours events reviewed. Agreed with the above treatment plan as outlined in GI Fellow 's notes with the addition of the following Patient had one BM Dark stool probably old blood Hb stable Continue high dose PPI Patient to follow up with Dr. Hoang as an outpatient 12/31/17 23:49
[2017-12-31 12:46] VITALS: RESP 20
[2017-12-31 15:41] LABS: HEMOGLOBIN 10.8 g/dL (14.0-18.0)
[2017-12-31 15:54] LABS: ALB/GLOB RATIO 1.3 (1.1-1.8); ALBUMIN 4.1 g/dL (3.0-4.8); ALT/SGPT 31 U/L (7-56); AST/SGOT 27 U/L (17-59); BLOOD UREA NITROGEN 14 mg/dL (7-21); CALCIUM 9.1 mg/dL (8.4-10.5); GFR NON-AFRICAN AMERICAN > 60
[2017-12-31 18:38] VITALS: BP 121/74; PULSE 78; TEMP 98
--- NOTE | 2017-12-31 21:03 | CP.PCM.DIS ---
<Aubrie Mccoy - Last Filed: 12/31/17 20:43> Provider - Provider Date of Admission: 12/29/17 09:58 Attending physician: Jammie Butt DO Primary care physician: Storm Garcia MD Time Spent in preparation of Discharge (in minutes): 45 Diagnosis - Discharge Diagnosis (1) Abdominal pain Status: Acute (2) Hematemesis Status: Acute Hospital Course - Lab Results Lab Results: Micro Results 12/29/17 13:00 Urine,Clean Catch Urine Culture - Final No Growth (<1,000 CFU/ML) Most Recent Lab Values WBC 7.5 10^3/uL (4.5-11.0) 12/31/17 07:00 RBC 3.34 10^6/uL (3.5-6.1) L 12/31/17 07:00 Hgb 10.8 g/dL (14.0-18.0) L 12/31/17 15:40 Hct 32.4 % (42.0-52.0) L 12/31/17 15:40 MCV 90.1 fl (80.0-105.0) 12/31/17 07:00 MCH 29.6 pg (25.0-35.0) 12/31/17 07:00 MCHC 32.9 g/dl (31.0-37.0) 12/31/17 07:00 RDW 13.6 % (11.5-14.5) 12/31/17 07:00 Plt Count 155 10^3/uL (120.0-450.0) 12/31/17 07:00 MPV 10.4 fl (7.0-11.0) 12/31/17 07:00 Gran % 56.9 % (50.0-68.0) 12/31/17 07:00 Lymph % (Auto) 30.2 % (22.0-35.0) 12/31/17 07:00 [place] % (Auto) 7.5 % (1.0-6.0) H 12/31/17 07:00 Eos % (Auto) 4.9 % (1.5-5.0) 12/31/17 07:00 Baso % (Auto) 0.5 % (0.0-3.0) 12/31/17 07:00 Gran # 4.27 (1.4-6.5) 12/31/17 07:00 Lymph # (Auto) 2.3 (1.2-3.4) 12/31/17 07:00 [place] # (Auto) 0.6 (0.1-0.6) 12/31/17 07:00 Eos # (Auto) 0.4 (0.0-0.7) 12/31/17 07:00 Baso # (Auto) 0.04 K/mm3 (0.0-2.0) 12/31/17 07:00 Retic Count 1.16 % (0.5-1.5) 12/29/17 12:59 PT 12.8 SECONDS (9.4-12.5) H 12/29/17 07:20 INR 1.11 12/29/17 07:20 APTT 22.5 Seconds (25.1-36.5) L 12/29/17 07:20 Sodium 141 mmol/L (132-148) 12/31/17 15:40 Potassium 4.2 mmol/L (3.6-5.0) 12/31/17 15:40 Chloride 102 mmol/L (98-107) 12/31/17 15:40 Carbon Dioxide 30 mmol/L (21-33) 12/31/17 15:40 Anion Gap 13 (10-20) 12/31/17 15:40 BUN 14 mg/dL (7-21) 12/31/17 15:40 Creatinine 0.9 mg/dl (0.8-1.5) 12/31/17 15:40 Est GFR ( Amer) > 60 12/31/17 15:40 Est GFR (Non-Af Amer) > 60 12/31/17 15:40 Random Glucose 97 mg/dL (70-110) 12/31/17 15:40 Calcium 9.1 mg/dL (8.4-10.5) 12/31/17 15:40 Phosphorus 3.1 mg/dL (2.5-4.5) 12/31/17 07:00 Magnesium 1.9 mg/dL (1.7-2.2) 12/31/17 07:00 Iron 85 ug/dL (45-180) 12/29/17 10:00 TIBC 318 ug/dL (261-462) 12/29/17 10:00 % Saturation 27 % (20-55) 12/29/17 10:00 Ferritin 17.6 ng/mL 12/29/17 10:00 Total Bilirubin 0.4 mg/dL (0.2-1.3) 12/31/17 15:40 AST 27 U/L (17-59) 12/31/17 15:40 ALT 31 U/L (7-56) 12/31/17 15:40 Alkaline Phosphatase 60 U/L (38-126) 12/31/17 15:40 Total Protein 7.3 g/dL (5.8-8.3) 12/31/17 15:40 Albumin 4.1 g/dL (3.0-4.8) 12/31/17 15:40 Globulin 3.2 gm/dL 12/31/17 15:40 Albumin/Globulin Ratio 1.3 (1.1-1.8) 12/31/17 15:40 Lipase 92 U/L (23-300) 12/29/17 07:20 Urine Color Straw (YELLOW) 12/29/17 13:00 Urine Appearance Clear (CLEAR) 12/29/17 13:00 Urine pH 6.0 (4.7-8.0) 12/29/17 13:00 Ur Specific [place] <= 1.005 (1.005-1.035) 12/29/17 13:00 Urine Protein Negative mg/dL (<30 mg/dL) 12/29/17 13:00 Urine Glucose (UA) Negative mg/dL (NEGATIVE) 12/29/17 13:00 Urine Ketones Negative mg/dL (NEGATIVE) 12/29/17 13:00 Urine Blood Negative (NEGATIVE) 12/29/17 13:00 Urine Nitrate Negative (NEGATIVE) 12/29/17 13:00 Urine Bilirubin Negative (NEGATIVE) 12/29/17 13:00 Urine Urobilinogen 0.2 E.U./dL (<1 E.U./dL) 12/29/17 13:00 Ur Leukocyte Esterase Negative [place]/uL (NEGATIVE) 12/29/17 13:00 Blood Type O POSITIVE 12/29/17 07:30 Blood Type Confirm O POSITIVE 12/29/17 10:05 Antibody Screen Negative 12/29/17 07:30 Crossmatch See Detail 12/29/17 07:30 BBK History Checked No verified bt 12/29/17 07:30 - Hospital Course Hospital Course: Upon admission Mr. Kumar is a 77 year old male with a past medical history of chronic constipation, HTN, spinal stenosis, BPH, and varicose veins who presented to the [facility] Emergency Department on 12/29 for hematemesis. Patient stated that he vomited coffee ground emesis continuously for 30 minutes the morning of the and denied any prior occurrences. Patient also described passing black tarry stool the day prior and was scheduled to follow up with his contract associate later in the week. Of note, patient had colonoscopy three weeks ago which revealed polyps, diverticulosis, and internal hemorrhoids. Patient admitted to inconsistent aspirin use but denied usage in the past 4-5 days. Per patient's daughter, patient lost 20 pounds over the past year and has had decreased appetite for the last month. Patient denied chest pain, shortness of breath, headaches, fevers, chills, nausea, back pain, abdominal pain, urinary complaints, numbness, tingling, swelling, recent sickness, trauma, and lifestyle changes. Recent travel was to [place] in September. In ED, Hgb was found to be 9.4 from 9.9 and blood pressure was 90/50. Patient was given 1L NS, placed on protonix drip, and transfused 1 [address]BC. [address] course [address] of abdomen/pelvis was ordered and revealed a gallstone and severe spinal stenosis at L4-5 without acute intra-abdominal findings. Chest x-ray revealed no active disease. H/H was followed and Hgb stabilized at 9.9. Gastroenterology (GI) was consulted and EGD was ordered. EGD showed a duodenal ulcer and two superficial antral ulcers. Gastroenterology recommended that protonix be continued, NSAIDs be avoided, and that the patient follow-up with GI after discharge. GI cleared the pt for d/c upon tolerating regular diet, and upon no further episodes of hematemesis. Pt was able to tolerate his diet well and had no further episodes of hematemesis. Pt had one further episode of melena, but pt was not symptomatic afterward and was thought to be related to the progression of his initial upper GI bleed finally being passed. Rectal exam was performed and pt was not noted to have any BRBPR. Stat CBC showed improvement of H&H from initial presentation. The family was informed of the results and they were interested in d/cing the pt home. The medical plan was explained to the pt and family and they all expressed understanding and agreement with the medical plan to d/c home. All questions and concerns of the family and the pt were addressed prior to d/c. For a complete record of hospital stay, please refer to medical record. Upon discharge Patient is to follow-up with his contract associate, Dr. Hoang, within one week of discharge. Patient is to follow-up with his primary care doctor, Dr. Garcia, within one of discharge. Patient is to continue protonix 40 BID. Patient is to discontinue all NSAID use. Patient is to have all OTC medications approved by his primary care doctor before starting a new medication. These instructions were explained to the patient, and the patient understood. Discharge Exam - Head Exam Head Exam: ATRAUMATIC, NORMAL INSPECTION, NORMOCEPHALIC - Eye Exam Eye Exam: EOMI, Normal appearance, PERRL - Respiratory Exam Respiratory Exam: NORMAL BREATHING PATTERN, UNREMARKABLE. absent: Accessory Muscle Use, Chest Wall Tenderness, Prolonged Expiratory Phase, Rales, Rhonchi, Wheezes, Respiratory Distress, Stridor - Cardiovascular Exam Cardiovascular Exam: RRR, +S1, +S2. absent: Gallop, Rubs - GI/Abdominal Exam GI & Abdominal Exam: Normal Bowel Sounds, Soft. absent: Firm, Guarding, Tenderness - Rectal Exam Rectal Exam: NORMAL INSPECTION. absent: Bloody Stool, Hemorrhoids, Fecal Impaction - Extremities Exam Extremities exam: normal capillary refill, normal inspection - Back Exam Back exam: NORMAL INSPECTION. absent: CVA tenderness (L), CVA tenderness (R) - Neurological Exam Neurological exam: Alert, Oriented x3 - Psychiatric Exam Psychiatric exam: Normal Affect, Normal Mood - Skin Skin Exam: Dry, Intact, Normal Color, Warm Discharge Plan - Discharge Medications Prescriptions: RX: Pantoprazole [Protonix EC Tab] 40 mg PO 0600,1600 14 Days #28 ect - Follow Up Plan Condition: STABLE Disposition: HOME/ ROUTINE Instructions: Soft Diet, Low Fiber Diet, [place] Diet, Gastrointestinal Bleeding (DC), Peptic Ulcers (DC), Duodenal Ulcer (DC) Additional Instructions: - Please follow up with your primary care doctor, Dr. Garcia, on wednesday after being discharge. - Please follow up with established contract associate within one week. Please also follow up the results of the biopsy from the scope that was done in the hospital. - Please take your acid ti, Protonix 40mg by mouth twice a day. Please take this medication up to 30 minutes before eating. - Soft, bland, low fiber diet for next 48 hours - Please avoid taking any over the counter pain medication like motrin or ibuprofen before clearing it first with your doctor. - We are stopping your home medications norvasc, benicar due to your blood pressure being well controlled in the hospital. Please discuss this with your primary care doctor, Dr. Garcia on Wednesday (01/04/2018) as to when to restart your medications. - Stop taking aspirin 81mg please discuss with your primary care doctor when to resume taking aspirin. - Please return to the emergency department if you have any return of your symptoms, or if you are having any new or worsening symptoms. Patient states he is up to date with regards to the flu vaccine and refuses the pneumococcal vaccine. Patient and family members state patient wishes to consult with his primary physician with regards to the pneumococcal vaccine. Referrals: Storm Garcia MD [Primary Care Provider] - Pio Hoang MD [Medical Doctor] - <Major Lopez - Last Filed: 01/01/18 06:41> Provider - Provider Date of Admission: 12/29/17 09:58 Attending physician: Jammie Butt DO Primary care physician: Storm Garcia MD Hospital Course - Lab Results Lab Results: Micro Results 12/29/17 13:00 Urine,Clean Catch Urine Culture - Final No Growth (<1,000 CFU/ML) Most Recent Lab Values WBC 7.5 10^3/uL (4.5-11.0) 12/31/17 07:00 RBC 3.34 10^6/uL (3.5-6.1) L 12/31/17 07:00 Hgb 10.8 g/dL (14.0-18.0) L 12/31/17 15:40 Hct 32.4 % (42.0-52.0) L 12/31/17 15:40 MCV 90.1 fl (80.0-105.0) 12/31/17 07:00 MCH 29.6 pg (25.0-35.0) 12/31/17 07:00 MCHC 32.9 g/dl (31.0-37.0) 12/31/17 07:00 RDW 13.6 % (11.5-14.5) 12/31/17 07:00 Plt Count 155 10^3/uL (120.0-450.0) 12/31/17 07:00 MPV 10.4 fl (7.0-11.0) 12/31/17 07:00 Gran % 56.9 % (50.0-68.0) 12/31/17 07:00 Lymph % (Auto) 30.2 % (22.0-35.0) 12/31/17 07:00 [place] % (Auto) 7.5 % (1.0-6.0) H 12/31/17 07:00 Eos % (Auto) 4.9 % (1.5-5.0) 12/31/17 07:00 Baso % (Auto) 0.5 % (0.0-3.0) 12/31/17 07:00 Gran # 4.27 (1.4-6.5) 12/31/17 07:00 Lymph # (Auto) 2.3 (1.2-3.4) 12/31/17 07:00 [place] # (Auto) 0.6 (0.1-0.6) 12/31/17 07:00 Eos # (Auto) 0.4 (0.0-0.7) 12/31/17 07:00 Baso # (Auto) 0.04 K/mm3 (0.0-2.0) 12/31/17 07:00 Retic Count 1.16 % (0.5-1.5) 12/29/17 12:59 PT 12.8 SECONDS (9.4-12.5) H 12/29/17 07:20 INR 1.11 12/29/17 07:20 APTT 22.5 Seconds (25.1-36.5) L 12/29/17 07:20 Sodium 141 mmol/L (132-148) 12/31/17 15:40 Potassium 4.2 mmol/L (3.6-5.0) 12/31/17 15:40 Chloride 102 mmol/L (98-107) 12/31/17 15:40 Carbon Dioxide 30 mmol/L (21-33) 12/31/17 15:40 Anion Gap 13 (10-20) 12/31/17 15:40 BUN 14 mg/dL (7-21) 12/31/17 15:40 Creatinine 0.9 mg/dl (0.8-1.5) 12/31/17 15:40 Est GFR ( Amer) > 60 12/31/17 15:40 Est GFR (Non-Af Amer) > 60 12/31/17 15:40 Random Glucose 97 mg/dL (70-110) 12/31/17 15:40 Calcium 9.1 mg/dL (8.4-10.5) 12/31/17 15:40 Phosphorus 3.1 mg/dL (2.5-4.5) 12/31/17 07:00 Magnesium 1.9 mg/dL (1.7-2.2) 12/31/17 07:00 Iron 85 ug/dL (45-180) 12/29/17 10:00 TIBC 318 ug/dL (261-462) 12/29/17 10:00 % Saturation 27 % (20-55) 12/29/17 10:00 Ferritin 17.6 ng/mL 12/29/17 10:00 Total Bilirubin 0.4 mg/dL (0.2-1.3) 12/31/17 15:40 AST 27 U/L (17-59) 12/31/17 15:40 ALT 31 U/L (7-56) 12/31/17 15:40 Alkaline Phosphatase 60 U/L (38-126) 12/31/17 15:40 Total Protein 7.3 g/dL (5.8-8.3) 12/31/17 15:40 Albumin 4.1 g/dL (3.0-4.8) 12/31/17 15:40 Globulin 3.2 gm/dL 12/31/17 15:40 Albumin/Globulin Ratio 1.3 (1.1-1.8) 12/31/17 15:40 Lipase 92 U/L (23-300) 12/29/17 07:20 Urine Color Straw (YELLOW) 12/29/17 13:00 Urine Appearance Clear (CLEAR) 12/29/17 13:00 Urine pH 6.0 (4.7-8.0) 12/29/17 13:00 Ur Specific [place] <= 1.005 (1.005-1.035) 12/29/17 13:00 Urine Protein Negative mg/dL (<30 mg/dL) 12/29/17 13:00 Urine Glucose (UA) Negative mg/dL (NEGATIVE) 12/29/17 13:00 Urine Ketones Negative mg/dL (NEGATIVE) 12/29/17 13:00 Urine Blood Negative (NEGATIVE) 12/29/17 13:00 Urine Nitrate Negative (NEGATIVE) 12/29/17 13:00 Urine Bilirubin Negative (NEGATIVE) 12/29/17 13:00 Urine Urobilinogen 0.2 E.U./dL (<1 E.U./dL) 12/29/17 13:00 Ur Leukocyte Esterase Negative [place]/uL (NEGATIVE) 12/29/17 13:00 Blood Type O POSITIVE 12/29/17 07:30 Blood Type Confirm O POSITIVE 12/29/17 10:05 Antibody Screen Negative 12/29/17 07:30 Crossmatch See Detail 12/29/17 07:30 BBK History Checked No verified bt 12/29/17 07:30 Attending/Attestation - Attestation I have personally seen and examined this patient.: Yes I have fully participated in the care of the patient.: Yes I have reviewed all pertinent clinical information, including history, physical exam and plan: Yes
== END 2017-12-31 19:12 | disposition home or self-care (01) | DRG 378 ==
LOC: ED 05:47 → ERH 09:58 → 2RSO 14:03
PROVIDERS: ADMIT Internal Medicine; ATTEND Hospitalist
PROC: 0DB98ZZ Excision of Duodenum, Via Natural or Artificial Opening Endoscopic (ICD-10-PCS; 2017-12-29)
PROC: 30233N1 Transfusion of Nonautologous Red Blood Cells into Peripheral Vein, Percutaneous Approach (ICD-10-PCS; 2017-12-29)
PROC: 0DB68ZZ Excision of Stomach, Via Natural or Artificial Opening Endoscopic (ICD-10-PCS; principal; 2017-12-29 16:30)
DX: K92.0 Hematemesis (principal); D62 Acute posthemorrhagic anemia; K25.9 Gastric ulcer, unspecified as acute or chronic, without hemorrhage or perforation; K26.9 Duodenal ulcer, unspecified as acute or chronic, without hemorrhage or perforation; K92.1 Melena; K80.20 Calculus of gallbladder without cholecystitis without obstruction; K57.90 Diverticulosis of intestine, part unspecified, without perforation or abscess without bleeding; M48.061 Spinal stenosis, lumbar region without neurogenic claudication; K59.09 Other constipation; R63.4 Abnormal weight loss; I95.9 Hypotension, unspecified; I10 Essential (primary) hypertension; N40.0 Benign prostatic hyperplasia without lower urinary tract symptoms; I83.90 Asymptomatic varicose veins of unspecified lower extremity; K64.8 Other hemorrhoids; Z79.82 Long term (current) use of aspirin

== ENCOUNTER 2018-05-16 14:11 | Outpatient (CLI) | payer MEDICARE | END 2018-05-16 14:12 | disposition home or self-care (01) | LOC: RAD 14:11 | DX: N40.1 Benign prostatic hyperplasia with lower urinary tract symptoms (principal); R35.1 Nocturia ==